=== PATIENT | male | born 1950 | race Caucasian/White ===

== ENCOUNTER → 2021-10-23 15:38 | Outpatient (BNVA) | payer MEDICARE, MEDICAID, SELFPAY | PROVIDERS: PCP Nurse Practitioner Family; Visit Provider Internal Medicine | DX: Z87.19 Personal history of other diseases of the digestive system (principal); B19.20 Unspecified viral hepatitis C without hepatic coma; B18.2 Chronic viral hepatitis C | CPT/HCPCS: 80053; 82105; 82140; 85049; 85384; 85610; 85730; 87517; 87522; 87902 ==